=== PATIENT | male | born 1995 | race Caucasian/White ===

== ENCOUNTER 2021-03-30 17:02 | Emergency (ER) | payer BC, OTHER ==
[2021-03-30 19:20] LABS: HEMOGLOBIN 15.5 gm/dl (14.0-17.5); RED BLOOD COUNT 5.28 M/UL (4.20-5.50); WHITE BLOOD COUNT 13.9 K/UL (4.5-11.0)
[2021-03-30 19:44] LABS: BUN/CREATININE RATIO 14 (0-10)
[2021-03-30] MEDS ORDERED: BENTYL 20MG TAB20 MG PO (21:32)
[2021-03-30] MEDS ORDERED: ZOFRAN4 MG PO (21:32)
[2021-03-30] MEDS ORDERED: PROTONIX40 MG PO (21:32)
== END 2021-03-30 21:45 | disposition home or self-care (01) ==
LOC: ER1 17:02
PROVIDERS: Physician Assistant Medical
DX: R11.2 Nausea with vomiting, unspecified (principal); R10.84 Generalized abdominal pain; Z88.0 Allergy status to penicillin; F17.290 Nicotine dependence, other tobacco product, uncomplicated
CPT/HCPCS: 80053; 81001; 85025; 96365; 96375; 99284; C9113; J1885; J2405; J2550; J7030; Q9967

== ENCOUNTER 2021-12-28 22:18 | Emergency (ER) | payer BC, OTHER ==
[~2021-12-28 22:18] MED LIST: BENTYL 20MG TAB20 MG PO; PROTONIX40 MG PO; ZOFRAN4 MG PO
== END 2021-12-29 05:28 | disposition home or self-care (01) ==
LOC: ER1 22:18
DX: S61.212A Laceration without foreign body of right middle finger without damage to nail, initial encounter (principal); W45.8XXA Other foreign body or object entering through skin, initial encounter; Y93.39 Activity, other involving climbing, rappelling and jumping off; Y92.69 Other specified industrial and construction area as the place of occurrence of the external cause; Z88.0 Allergy status to penicillin; Z23 Encounter for immunization
CPT/HCPCS: 73130; 90471; 90715; 99283